=== PATIENT | male | born 1945 | race Caucasian/White ===

== ENCOUNTER → 2017-04-26 | Outpatient (CLI) | payer OTHER ==
[~2017-04-26] MED LIST: CLOP75 PO; ECOT325T PO; LIPI80TA16 PO; LISI-360 PO; METO25CR PO; NOVOLOGP2 SQ
--- NOTE | 2017-04-26 10:03 | RADRPT ---
EXAM DATE/TIME: 04/26/2017 09:50 [facility] COMPARISON: No previous studies available for comparison. INDICATIONS : Dysphagia FLUORO TIME: 1.3 minutes IMAGE COUNT: 3 CONTRAST: Dose as prescribed by speech pathologist. MEDICAL HISTORY : Carcinoma, tongue. SURGICAL HISTORY : None. ENCOUNTER: Initial ACUITY: 1 day PAIN SCORE: 0/10 LOCATION: Bilateral Esophagus FINDINGS: A modified barium swallow was performed with speech pathology. Patient was given a variety of liquids to swallow. There is penetration and aspiration of tracer activity into the upper airway. For a full detailed report, see report by the speech pathologist. CONCLUSION: There is evidence of penetration and aspiration into the upper airway. Dillon August MD on April 26, 2017 at 10:01 Board Certified Radiologist. This report was verified electronically.
== END ==
LOC: HRAD 09:20
PROVIDERS: ATTEND Specialist
DX: C01 Malignant neoplasm of base of tongue (principal); C78.02 Secondary malignant neoplasm of left lung
CPT/HCPCS: 74230; 92611; G8996; G8997; G8998

== ENCOUNTER 2017-08-15 06:11 | Day surgery (SDC) | payer OTHER ==
[~2017-08-15] VITALS: Ht 175.3 cm; Wt 70.5 kg
[2017-08-15 06:44] VITALS: BP 134/88; PULSE 89; RESP 20; TEMP 97.7; O2SAT 98
[2017-08-15] MEDS ORDERED: LANTUS2P SQ (06:47)
[2017-08-15] MEDS ORDERED: NOVOLOGP2 SQ (06:47)
[2017-08-15] MEDS ORDERED: MAGN250T11 G-TUBE (06:47)
[2017-08-15] MEDS ORDERED: LEVO25TA4 G-TUBE (06:47)
[2017-08-15] MEDS ORDERED: ATOR40TA16 G-TUBE (06:47)
[2017-08-15] MEDS ORDERED: ASPI81CH6 G-TUBE (06:47)
[2017-08-15] MEDS ORDERED: CHLORHEXIDINE GLUCONATE 2 % 1 PACK (2 CLOTHS) TOPICAL SCH (07:00)
[2017-08-15] MEDS ORDERED: VANCOMYCIN 1000 MG/NS 250 ML - implanted port/tunneled catheter IV SCH ×2 (07:00)
[2017-08-15] MEDS ORDERED: ceFAZolin 2 GM PREMIX 50 ML - implanted port/tunneled catheter insertion IV SCH (07:00)
[2017-08-15] MEDS ORDERED: SODIUM CHLORIDE 0.9% 1000 ML IV SCH (07:00)
[2017-08-15] MEDS ORDERED: POVIDONE IODINE 5% (ANTISEPSIS KIT) 4 APPLICATIONS EACH NARE SCH (07:00)
[2017-08-15] MEDS ORDERED: fentaNYL CITRATE 250 MCG/5 ML AMP ONE (08:04)
[2017-08-15] MEDS ORDERED: MIDAZOLAM HCL 2 MG/2 ML VIAL ONE (08:04)
[2017-08-15 09:30] VITALS: BP 126/73; PULSE 84; RESP 18; TEMP 97.7; O2SAT 96
[2017-08-15 09:45] VITALS: BP 123/80; PULSE 81; RESP 18; O2SAT 94
[2017-08-15] MEDS ORDERED: SODIUM CHLORIDE 0.9% FLUSH 10 ML FLUSH IVF PRN (09:45)
--- NOTE | 2017-08-15 09:49 | PD.RAD ---
Post Procedure Progress Note Pre Procedure Diagnosis: (1) Lung cancer Post Procedure Diagnosis: (1) Lung cancer Procedure Date: Aug 15, 2017 Supervising Radiologist: Marek Quinteros Proceduralist/Assist: Handy Lomax, RT(R), Ly Scott, RT(R) Anesthesia: Local, Conscious Sedation Plan of Activity Patient to Unit: ROPU Patient Condition: Good See PACS Report for procedural detail/treatment Central Venous Access Device Procedure 1 Right Internal Jugular Infusaport Placement single lumen Barb[place]: 8 Additional Detail: Right IJ occluded to within a centimeter of the innominate vein - likely secondary to prior ports and tx for H&N Ca Marek Quinteros MD Aug 15, 2017 09:49
[2017-08-15] MEDS ORDERED: HYDROmorphone HCL PF 1 MG/ML VIAL IVS PRN ×2 (10:00)
[2017-08-15] MEDS ORDERED: oxyCODONE/ACETAMINOPHEN 5 MG/325 MG TAB PO PRN ×2 (10:00)
[2017-08-15 10:15] VITALS: BP 122/68; PULSE 81; RESP 18; O2SAT 97
[2017-08-15 10:45] VITALS: BP 114/64; PULSE 75; RESP 18; O2SAT 97
--- NOTE | 2017-08-15 10:47 | RADRPT ---
EXAM DATE/TIME: 08/15/2017 09:54 [facility] COMPARISON: No previous studies available for comparison. INDICATIONS : Inzesh-q-Ibke placement MEDICAL HISTORY : Carcinoma, lung. SURGICAL HISTORY : None. ENCOUNTER: Initial ACUITY: 1 day PAIN SCORE: 0/10 LOCATION: Bilateral chest FINDINGS: Relhiq-j-Pqai in good position. No pneumothorax. Minimal parenchymal changes laterally right lung. Left lung clear. CONCLUSION: Negative for pneumothorax Peter Flores MD FACR on August 15, 2017 at 10:42 Board Certified Radiologist. This report was verified electronically.
--- NOTE | 2017-08-15 11:12 | RADRPT ---
EXAM DATE/TIME: 08/15/2017 08:58 [facility] COMPARISON: CHEST EXPIRATION ONLY, August 15, 2017, 9:54. INDICATIONS : Patient presents with lung mass in need of port placement. MEDICAL HISTORY : Tongue cancer CAD Diabetes High Cholesterol SURGICAL HISTORY : Kidney transplant G-tube ENCOUNTER: Initial ACUITY: 1 week PAIN SCORE: 0/10 LOCATION: N/A FLUORO TIME: 1.2 minutes IMAGE SERIES: SEDATION TIME: 30 minutes ACCESS: Right internal jugular vein SEDATION: 1.) 4 mg midazolam (Versed) IV 2.) 250 mcg fentanyl (Sublimaze) IV Prophylactic antibiotics were administered with appropriate pre-procedure timing. Vancomycin within 2 hours of procedure, Ancef (or alternative) within 1 hour of procedure. DEVICE: 1. 8 Australian single lumen Xcela Plus Port PROCEDURE : 1. Continuous pulse oximetry and EKG monitoring. 2. Intravenous conscious sedation. 3. Ultrasound guidance for venous access. 4. Fluoroscopic guided implantable central venous port placement. The patient was placed supine. The neck was prepped in sterile fashion. Full sterile technique was u sed, including cap, mask, sterile gloves and gown, and a large sterile sheet. Hand hygiene and 2% ch lorhexidine Betadine was utilized per protocol for cutaneous antisepsis with appropriate dry time for site. Sterile gel and sterile probe cover were utilized for ultrasound guidance. The skin and sub cutaneous tissues were infiltrated with local anesthetic solution. Under direct ultrasound guidance, central venous access was accomplished in the targeted vessel. The ultrasound images depicting access guidance were stored and saved to PACS for permanent record. A s ubcutaneous pocket was created using blunt dissection. The port was introduced to the pocket. The c atheter tubing was fed through a subcutaneous tunnel to the venotomy site. The catheter tubing was c ut to a suitable length and then was introduced through a valved Peel-Away sheath and positioned with catheter tubing tip at the cavo-atrial junction level. The pocket incision was closed with subcutic ular Vicryl suture. Steri-Strips were applied. The port was flushed and locked with heparin solutio n per protocol. Sterile dressing was applied to the site. The patient tolerated the procedure well. Conscious sedation was performed with the prescribed dosages and duration as above in the presence of an independent trained radiology nurse to assist in the monitoring of the patient. EKG and oximetry remained stable throughout the procedure. The patient tolerated the procedure well and there were no complications. The patient was sent to post anesthesia recovery in stable condition. CONCLUSION: Uncomplicated ultrasound and fluoroscopic guided implanted central venous port catheter placement as described in detail above. An 8 Australian Power port was placed. Marek Quinteros MD on August 15, 2017 at 11:09 Board Certified Radiologist. This report was verified electronically.
== END 2017-08-15 11:26 | disposition home or self-care (01) ==
LOC: HROP 06:11 → HRIP 06:15 → HROP 11:26
PROVIDERS: ATTEND Internal Medicine Hematology & Oncology
DX: C34.90 Malignant neoplasm of unspecified part of unspecified bronchus or lung (principal)
CPT/HCPCS: 36561; 71045; 76937; 77001; 99152; 99153; C1788; J0690; J1642; J2250; J3010; J3370; J7030; J7050

== ENCOUNTER 2018-09-03 22:10 | Inpatient (IN) ==
[2018-09-03] MEDS ORDERED: Pantoprazole Inj 40 MG Vial IV.PUSH ONE (22:44)
[2018-09-03] MEDS ORDERED: Sod Chloride 0.9% Inj 1,000 ML IV.SIG ONE (22:46)
[2018-09-03 23:04] LABS: Baso % (Auto) 0.3 % (0.0-2.0); Eos # (Auto) 0.1 th/mm3 (0.0-0.4); Eos % (Auto) 2.8 % (0.0-4.0); Hematocrit 37.3 % (39.0-51.0); Hemoglobin 12.5 gm/dL (13.0-17.0); Lymph # (Auto) 0.7 th/mm3 (1.0-4.8); Lymph % (Auto) 15.3 % (9.0-44.0); Mean Corpuscular HGB Conc 33.4 % (32.0-36.0); Mean Corpuscular Hemoglobin 27.7 pg (27.0-34.0); Mean Corpuscular Volume 82.9 fL (80.0-100.0); Mean Platelet Volume 9.2 fL (7.0-11.0); Mono # (Auto) 0.5 th/mm3 (0.0-0.9); Mono % (Auto) 10.9 % (0.0-8.0); Neut # (Auto) 3.4 th/mm3 (1.8-7.7); Neut % (Auto) 70.7 % (16.0-70.0); Platelet Count 233 th/mm3 (150-450); Red Cell Distribution Width 14.1 % (11.6-17.2); White Blood Count 4.8 th/mm3 (4.0-11.0)
--- NOTE | 2018-09-03 23:08 | ED ---
HPI General Chief complaint: Nausea/Vomiting/Diarrhea Stated complaint: Vomiting blood Time Seen by Provider: 09/03/18 22:31 History of Present Illness HPI Narrative: Patient is a 73-year-old male with a history of laryngeal cancer and then repeat throat cancer laser surgery is on a PEG tube takes nothing by mouth except liquid tonight after the PEG feeding was done he went to the bathroom felt he would vomit out came coffee-ground emesis and from his PEG tube there is coffee-ground emesis looking material it is guaiac positive bedside we check it patient denies any pain he denies any NSAIDs he denies any trauma he denies any injury from the area patient recently had a chemotherapy that may have affected his LFTs and caused possibly coagulopathy patient has normal vitals but has an obvious coffee-ground emesis is needing to be admitted put on a Protonix drip and to be seen by GI patient is never had ulcers in his stomach before and he is denying black stools he is denying NSAIDs he is denying any caustics he does take magnesium oxide pills always Related Data Home Medications Medication Instructions Recorded Confirmed atorvastatin 40 mg PO QPM 08/25/18 09/04/18 levothyroxine 75 mcg PO DAILY 08/25/18 09/04/18 magnesium oxide [MagOx] 400 mg PO DAILY 08/25/18 09/04/18 insulin asp prt-insulin aspart 15 unit SUBCUT BID 09/04/18 09/04/18 [Novolog Mix 70-30 U-100 Insuln] insulin glargine [Lantus U-100 20 unit SUBCUT DAILY 09/04/18 09/04/18 Insulin] Allergies Allergy/AdvReac Type Severity Reaction Status Date / Time No Known Allergies Allergy Verified 08/25/18 10:33 Review of Systems ROS: all other systems reviewed are negative Gastrointestinal Reports coffee ground emesis PMFSH Medical History Medical History Diabetes (Acute) G tube feedings (Acute) Lung metastasis (Acute) Throat cancer (Acute) Surgical History Surgical History H/O heart artery stent (Acute) Social History Social History Substance History: No History of Abuse Second Hand Smoke Exposure: No Smoking Status: Former smoker Tobacco Type: Cigarettes How Often Do You Have a Drink Containing Alcohol: Never Recent Travel in [facility] within the Last 8 Weeks: No Recent Out of Country Travel within the Last 8 Weeks: No Exam Narrative Exam Narrative: GENERAL: PT HAS COFFEE COLORED LIQUID IN HIS PEG FEEDING TUBE, NON TOXIC NON SEPTIC APPEARANCE SKIN: Warm and dry. HEAD: Atraumatic. Normocephalic. EYES: Pupils equal and round. No scleral icterus. No injection or drainage. ENT: No nasal bleeding or discharge. Mucous membranes pink and moist. NECK: Trachea midline. No JVD. CARDIOVASCULAR: Regular rate and rhythm. RESPIRATORY: No accessory muscle use. Clear to auscultation. Breath sounds equal bilaterally. GASTROINTESTINAL: Abdomen NON TENDER WITH NO BLOOD AROUND PEG TUBE , TUBE HAS MAROON COLORED COFFEE GROUND LOOKING SUBSTANCE FLUID IN TUBE = GUIAC + POSITIVE ON OCCULT CARD FOR BLOOD MUSCULOSKELETAL: Extremities without clubbing, cyanosis, or edema. No obvious deformities. NEUROLOGICAL: Awake and alert. No obvious cranial nerve deficits. Motor grossly within normal limits. Five out of 5 muscle strength in the arms and legs. Normal speech. PSYCHIATRIC: Appropriate mood and affect; insight and judgment normal. Course Initial Documented Vital Signs Temperature 98.3 F 09/03/18 22:10 Pulse Rate 97 H 09/03/18 22:10 Respiratory Rate 20 09/03/18 22:10 Blood Pressure 125/77 09/03/18 22:10 Pulse Oximetry 97 09/03/18 22:10 Last Documented Vital Signs Temperature 97.8 F 09/04/18 04:00 Pulse Rate 78 09/04/18 04:00 Respiratory Rate 16 09/04/18 04:00 Blood Pressure 130/76 09/04/18 04:00 Pulse Oximetry 97 09/04/18 04:00 Medical Decision Making MDM Narrative Medical decision making narrative: PROTONIX IV NS AND PROTONIX DRIP AND ADMITTED Medical Screen Exam Complete: Yes Emergency Medical Condition: Yes Differential Diagnosis Differential Diagnosis: BLEEDING GASTRIC ULCER VS BLEEDING PUD VS FOOD COLORING FLUID BROWN VS NOSE BLEED THAT WS POSTERIOR PHARYNX TO GASTRIC BLOOD OTHER Lab Data Result diagrams: 09/04/18 01:38 09/03/18 22:50 Lab Results 09/03/18 09/03/18 09/03/18 Range/Units 22:50 22:50 22:50 CBC w Diff Auto diff final WBC 4.8 (4.0-11.0) th/mm3 RBC 4.50 (4.50-5.90) mil/mm3 Hgb 12.5 L (13.0-17.0) gm/dL Hct 37.3 L (39.0-51.0) % MCV 82.9 (80.0-100.0) fL MCH 27.7 (27.0-34.0) pg MCHC 33.4 (32.0-36.0) % RDW 14.1 (11.6-17.2) % Plt Count 233 (150-450) th/mm3 MPV 9.2 (7.0-11.0) fL Neut % (Auto) 70.7 H (16.0-70.0) % Lymph % (Auto) 15.3 (9.0-44.0) % [place] % (Auto) 10.9 H (0.0-8.0) % Eos % (Auto) 2.8 (0.0-4.0) % Baso % (Auto) 0.3 (0.0-2.0) % Neut # (Auto) 3.4 (1.8-7.7) th/mm3 Lymph # (Auto) 0.7 L (1.0-4.8) th/mm3 [place] # (Auto) 0.5 (0.0-0.9) th/mm3 Eos # (Auto) 0.1 (0.0-0.4) th/mm3 Baso # (Auto) 0.0 (0.0-0.2) th/mm3 WBC Differential . Differential Comment . PT 10.1 (9.8-11.6) sec INR 1.0 Ratio Sodium 132 L (136-145) meq/L Potassium 3.7 (3.5-5.1) meq/L Chloride 94 L (98-107) meq/L Carbon Dioxide 30.3 (21.0-32.0) meq/L Anion Gap 8 (5-15) meq/L BUN 22 H (7-18) mg/dL Creatinine 0.87 (0.60-1.30) mg/dL Estimated GFR 87 L (>89) mL/min Random Glucose 289 H (74-106) mg/dL Calcium 8.9 (8.5-10.1) mg/dL Total Bilirubin 0.5 (0.2-1.0) mg/dL AST 100 H (15-37) U/L ALT 130 H (12-78) U/L Alkaline Phosphatase 159 H (45-117) U/L Total Protein 7.9 (6.4-8.2) g/dL Albumin 3.3 L (3.4-5.0) g/dL Blood Type Blood Type Recheck Antibody Screen 09/03/18 09/04/18 Range/Units 22:50 01:38 CBC w Diff WBC (4.0-11.0) th/mm3 RBC (4.50-5.90) mil/mm3 Hgb 10.4 L D (13.0-17.0) gm/dL Hct (39.0-51.0) % MCV (80.0-100.0) fL MCH (27.0-34.0) pg MCHC (32.0-36.0) % RDW (11.6-17.2) % Plt Count (150-450) th/mm3 MPV (7.0-11.0) fL Neut % (Auto) (16.0-70.0) % Lymph % (Auto) (9.0-44.0) % [place] % (Auto) (0.0-8.0) % Eos % (Auto) (0.0-4.0) % Baso % (Auto) (0.0-2.0) % Neut # (Auto) (1.8-7.7) th/mm3 Lymph # (Auto) (1.0-4.8) th/mm3 [place] # (Auto) (0.0-0.9) th/mm3 Eos # (Auto) (0.0-0.4) th/mm3 Baso # (Auto) (0.0-0.2) th/mm3 WBC Differential Differential Comment PT (9.8-11.6) sec INR Ratio Sodium (136-145) meq/L Potassium (3.5-5.1) meq/L Chloride (98-107) meq/L Carbon Dioxide (21.0-32.0) meq/L Anion Gap (5-15) meq/L BUN (7-18) mg/dL Creatinine (0.60-1.30) mg/dL Estimated GFR (>89) mL/min Random Glucose (74-106) mg/dL Calcium (8.5-10.1) mg/dL Total Bilirubin (0.2-1.0) mg/dL AST (15-37) U/L ALT (12-78) U/L Alkaline Phosphatase (45-117) U/L Total Protein (6.4-8.2) g/dL Albumin (3.4-5.0) g/dL Blood Type A Negative Blood Type Recheck Required Antibody Screen Negative Imaging Data Radiologist's impression: Abdomen/Pelvis CT 09/03/18 23:18 CONCLUSION: 1. Areas wall thickening with some minimal stranding within the transverse and sigmoid colon could be colitis. No perforation or abscess. 2. Pleural-based masses in the right lower hemithorax. 3. Minimal stranding in the mesentery which can be seen with mesenteric paniculitis, self-limiting. Discharge Plan Discharge Disposition Patient Disposition: ED Admit(ED Internal Use Only) Discharge Order Discharge Orders: ED Use Only Admit Order (Routine); Ordered 09/03/18 Ordered By: Ankur Coates Discharge Details Diagnosis: Acute GI bleeding Physicians Team ED Provider: Ankur Coates Primary Care Provider: Maurisio Lechuga Attending Provider: Agustin Sauer Other Providers: Renny Read Status ED Status: Left Department Discharge Information Discharge Date/Time: 09/04/18 02:30
[2018-09-03 23:15] LABS: Chloride 94 meq/L (98-107); Potassium 3.7 meq/L (3.5-5.1); Sodium 132 meq/L (136-145)
[2018-09-03 23:18] LABS: Calcium 8.9 mg/dL (8.5-10.1)
[2018-09-03 23:19] LABS: Albumin 3.3 g/dL (3.4-5.0); Anion Gap 8 meq/L (5-15); Blood Urea Nitrogen 22 mg/dL (7-18); Carbon Dioxide 30.3 meq/L (21.0-32.0); Glucose,Random 289 mg/dL (74-106); Prothrombin Time 10.1 sec (9.8-11.6)
[2018-09-03 23:22] LABS: Alanine Aminotransferase 130 U/L (12-78); Aspartate Aminotransferase 100 U/L (15-37); Glomerular Filtration Rate 87 mL/min (>89)
[2018-09-03 23:24] LABS: Total Protein 7.9 g/dL (6.4-8.2)
[2018-09-03 23:25] LABS: Alkaline Phosphatase 159 U/L (45-117)
[2018-09-03] MEDS ORDERED: Pantoprazole Inj 80 MG in Sodium Chlor 0.9% Inj 100 ML IV.CONT SCH (23:45)
[2018-09-03] MEDS ORDERED: Dextrose 50% in Water 50 ML Vial IV.PUSH PRN (23:58)
[2018-09-04] MEDS ORDERED: Acetaminophen 325 MG Tablet PO PRN (00:03)
[2018-09-04] MEDS ORDERED: Bisacodyl 10 MG Supp RECTAL PRN (00:03)
--- NOTE | 2018-09-04 00:18 | CT ---
EXAM DATE: 09/04/2018 12:02 AM EST AGE/SEX: 73 years / Male INDICATIONS: Distention. Blood in feeding tube. CLINICAL DATA: This is the patient's initial encounter. Patient reports that signs and symptoms have been present for 1 day and indicates a pain score of 0/10. MEDICAL/SURGICAL HISTORY: Carcinoma, oral cavity. Carcinoma, lung. . Gastric feeding tube. RADIATION DOSE: 16.78 CTDI (mGy) COMPARISON: POI, CT ABDOMEN AND PELVIS W/ CONTRAST, 08/02/2018. . TECHNIQUE: Multiple contiguous axial images were obtained through the abdomen. Images were obtained using multiple row detector helical technique. Using automated exposure control and adjustment of the mA and/or kV according to patient size, radiation dose was kept as low as reasonably achievable to o btain optimal diagnostic quality images. DICOM format image data is available electronically for rev iew and comparison. FINDINGS: Lower Lungs: 3 pleural-based masses in the right lower hemithorax. Pleural calcifications bilaterally . Liver: The liver has a homogeneous density without space-occupying lesion. There is no dilation of th e biliary tree. Spleen: Homogeneous density without enlargement. Pancreas: Atrophic with chronic pancreatic calcifications. Kidneys: Normal in size and shape. No evidence of mass or hydronephrosis. Adrenal Glands: Unremarkable. Aorta: The aorta and proximal iliac vessels are grossly unremarkable without aneurysmal dilation. Bowel/Mesentery: Percutaneous gastrostomy tube. There is some minimal stranding in the mesentery. Th ere is some wall thickening and inflammatory changes within the transverse and sigmoid colon. Abdominal Wall: Intact. Retroperitoneum: No evidence of adenopathy in the retrocrural, para-aortic, or deep pelvic regions. Bladder: Contours are smooth. Reproductive Organs: No abnormal masses or calcifications seen. Inguinal: The inguinal region is unremarkable without evidence of adenopathy. Bony Structures: Degenerative changes lumbar spine greatest at L4 and L5 levels. CONCLUSION: 1. Areas wall thickening with some minimal stranding within the transverse and sigmoid colon could b e colitis. No perforation or abscess. 2. Pleural-based masses in the right lower hemithorax. 3. Minimal stranding in the mesentery which can be seen with mesenteric paniculitis, self-limiting. Electronically signed by: Agustin Chavez MD Board Certified Radiologist 09/04/2018 12:17 AM EST
[2018-09-04] MEDS: Sod Chloride 0.9% Inj 1,000 ML IV.CONT SCH ×2 (01:42→12:00)
[2018-09-04] MEDS: Pantoprazole Inj 80 MG in Sodium Chlor 0.9% Inj 100 ML IV.CONT SCH ×3 (01:43→20:09)
[2018-09-04] MEDS: Insulin NovoLOG Aspart Correctional Sugar Inj SQ SCH ×4 (07:22→20:15)
[2018-09-04] MEDS ORDERED: Influenza (Quadrivalent) Vaccine 0.5 ML Syringe IM ONE (09:00)
[2018-09-04] MEDS: Dextrose 5% in Water Inj 1,000 ML IV.CONT SCH (12:56)
--- NOTE | 2018-09-04 13:26 | P.CONIM ---
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 Although patient denies any GI bleed per rectum however he has finding of colitis per abdomen CT. Patient states, he has had a PEG tube placed 2 years ago and denies any prior GI bleed per his tube. He states, yesterday detention through feeding around 9 PM he noted blood through his PEG tube which was followed by coffee-ground emesis. He Is currently on chemo, which he received 2 weeks ago. Patient reports a prior history of tobacco abuse. H&H on admission was 12.5/37.3. Review of Systems Review of Systems: all other systems reviewed are negative [facility] Medical History Medical History Diabetes (Acute) G tube feedings (Acute) Lung metastasis (Acute) Throat cancer (Acute) Surgical History Surgical History H/O heart artery stent (Acute) Social History Social History Substance History: No History of Abuse Second Hand Smoke Exposure: No Smoking Status: Former smoker Tobacco Type: Cigarettes How Often Do You Have a Drink Containing Alcohol: Never Recent Travel in [place] within the Last 8 Weeks: No Recent Out of Country Travel within the Last 8 Weeks: No Immunization History Tetanus Immunization: >5 Years Hx Influenza Vaccine This Season: No Medications and Allergies Allergies Allergy/AdvReac Type Severity Reaction Status Date / Time No Known Allergies Allergy Verified 08/25/18 10:33 Home Medications Medication Instructions Recorded Confirmed Type atorvastatin 40 mg PO QPM 08/25/18 09/04/18 History levothyroxine 75 mcg PO DAILY 08/25/18 09/04/18 History magnesium oxide [MagOx] 400 mg PO DAILY 08/25/18 09/04/18 History insulin asp prt-insulin aspart 15 unit SUBCUT BID 09/04/18 09/04/18 History [Novolog Mix 70-30 U-100 Insuln] insulin glargine [Lantus U-100 20 unit SUBCUT DAILY 09/04/18 09/04/18 History Insulin] Active Medications: Active Medications Acetaminophen (Tylenol) 650 mg PO Q4H PRN PRN Reason: Temp > 100.4 Al Hydroxide/Mg Hydroxide (Milk Of Magnesia Liq) 30 ml PO Q12H PRN PRN Reason: Mild Constipation Bisacodyl (Dulcolax Supp) 10 mg RECTAL DAILY PRN PRN Reason: SEVERE CONSITIPATION Dextrose (D50w Vial) 50 ml IV.PUSH UNSCH PRN PRN Reason: PER HYPOGLYCEMIA PROTOCOL Glucagon (Glucagon Inj) 1 mg OTHER PRN PRN PRN Reason: for Hypoglycemia Protocol Pantoprazole Sodium 80 mg/ (Sodium Chloride) 100 mls @ 10 mls/hr IV.CONT Q10H [facility] Last Admin: 09/04/18 11:59 Dose: 10 mls/hr Dextrose (D5w Inj) 1,000 mls @ 84 mls/hr IV.CONT .[id number] [facility] Last Admin: 09/04/18 12:56 Dose: 84 mls/hr Insulin Aspart (Novolog Insulin Correctional Sugar Inj) 0 unit SQ ACHS [facility]; Protocol Last Admin: 09/04/18 12:01 Dose: Not Given Lactulose (Lactulose Liq) 30 ml PO DAILY PRN PRN Reason: SEVERE CONSITIPATION Ondansetron HCl (Zofran Inj) 4 mg IV.PUSH Q6H PRN PRN Reason: NAUSEA OR VOMITING Polyethylene Glycol/Electrolytes (Colyte Liq) 4,000 ml G-TUBE ONCE ONE Stop: 09/04/18 14:01 Sennosides (Senokot) 17.2 mg PO Q12H PRN PRN Reason: Moderate Constipation Sodium Chloride (Ns Flush) 2 ml IV.FLUSH BID [facility] Last Admin: 09/04/18 08:11 Dose: Not Given Sodium Chloride (Ns Flush) 2 ml IV.FLUSH PRN PRN PRN Reason: FLUSH AFTER USING IV ACCESS Physical Exam Vital signs: Vital Signs 09/03/18 22:10 09/03/18 23:58 09/04/18 01:00 Temperature 98.3 F Pulse Rate 97 H 74 78 Respiratory Rate 20 18 20 Blood Pressure 125/77 110/62 129/69 Pulse Oximetry 97 09/04/18 02:00 09/04/18 04:00 09/04/18 08:00 Temperature 97.8 F 98.2 F Pulse Rate 78 78 74 Respiratory Rate 18 16 20 Blood Pressure 129/69 130/76 113/61 Pulse Oximetry 97 95 09/04/18 12:00 Temperature 97.0 F L Pulse Rate 72 Respiratory Rate 22 Blood Pressure 109/56 L Pulse Oximetry 96 Intake & Output 09/03/18 09/04/18 09/04/18 18:59 06:59 18:59 Intake Total 1200 / 1200 Output Total 500 / 500 Balance -500 / -500 1200 / 1200 Weight 81.3 kg Intake: IV 1200 / 1200 Protonix Inj 80 MG In NS Inj 100 / 100 100 ML @ 10 mls/hr IV.CONT Q10H [facility] Rx#:[id number] NS Inj 1,000 ML @ 100 mls/hr IV 1100 / 1100 .CONT .Q10H [facility] Rx#:[id number] Output: Urine 500 / 500 Other: Date of Last Bowel Movement 09/04/18 Weight On Admission 81 kg Narrative: GENERAL: NAD SKIN: Warm and dry. HEAD: Atraumatic. Normocephalic. EYES: Pupils equal and round. No scleral icterus. No injection or drainage. ENT: No nasal bleeding or discharge. Mucous membranes pink and moist. NECK: Trachea midline. No JVD. CARDIOVASCULAR: Regular rate and rhythm. RESPIRATORY: No accessory muscle use. Clear to auscultation. Breath sounds equal bilaterally. GASTROINTESTINAL: Abdomen soft, non-tender, nondistended. Hepatic and splenic margins not palpable. PEG tube in place MUSCULOSKELETAL: Extremities without clubbing, cyanosis, or edema. No obvious deformities. NEUROLOGICAL: Awake and alert. No obvious cranial nerve deficits. Motor grossly within normal limits. Five out of 5 muscle strength in the arms and legs. Normal speech. PSYCHIATRIC: Appropriate mood and affect; insight and judgment normal. Results Labs CBC & Chem 7: 09/04/18 07:33 09/03/18 22:50 Imaging Impressions Abdomen/Pelvis CT 09/03/18 23:18 CONCLUSION: 1. Areas wall thickening with some minimal stranding within the transverse and sigmoid colon could be colitis. No perforation or abscess. 2. Pleural-based masses in the right lower hemithorax. 3. Minimal stranding in the mesentery which can be seen with mesenteric paniculitis, self-limiting. ABG Impressions Abdomen/Pelvis CT 09/03/18 23:18 CONCLUSION: 1. Areas wall thickening with some minimal stranding within the transverse and sigmoid colon could be colitis. No perforation or abscess. 2. Pleural-based masses in the right lower hemithorax. 3. Minimal stranding in the mesentery which can be seen with mesenteric paniculitis, self-limiting. Assessment and Plan Plan 73-year-old man with Coffee-ground emesis Bleeding through PEG tube CT abdomen noted and reviewed by me with finding of possible colitis, however will hold on starting antibiotics patient has no WBC denies any abdominal pain nor is he febrile. Currently on PPI drip Gastroenterology has been consulted for evaluation for panendoscopy and PEG tube replacement Continue serial H&H monitoring Anemia of chronic disease Continue to monitor H&H and transfuse accordingly for hemoglobin less than 8 Diabetes type 2 Hold all oral hyperglycemic agents Start insulin sliding scale with fingerstick blood glucose monitoring Hyperlipidemia, hypothyroidism Hold oral medications as patient currently n.p.o. and PEG tube cannot be used DVT prophylaxis: Mechanical prophylaxis contraindicated GI prophylaxis: PPI
[2018-09-04] MEDS ORDERED: PEG 3350/E-Lyte Soln 4000 ML Bottle G-TUBE ONE (14:00)
--- NOTE | 2018-09-04 14:22 | MB ---
cc: Renny Read MD, Eric MD DATE: 09/04/2018 REASON FOR CONSULTATION: Nausea, vomiting, hematemesis, and anemia. The patient also has elevated liver function tests. HISTORY OF PRESENT ILLNESS: This patient is a 73-year-old gentleman who has metastatic laryngeal cancer. He is currently undergoing chemotherapy for metastasis to the lungs. He presented with coffee-ground emesis and blood through the G-tube. He denies any lower GI symptoms, although his CT scan shows some evidence of nonspecific colitis. He says after chemotherapy his liver function tests went up in the high 200s, which now seem to be improving. REVIEW OF SYSTEMS: Currently having no nausea, vomiting. No bleeding. PAST MEDICAL HISTORY: Diabetes, laryngeal cancer with metastasis to the lung. Feeding tube placement. PAST SURGICAL HISTORY: Coronary stent placement, laryngeal surgery. SOCIAL HISTORY: The patient is a former smoker. No alcohol reported. MEDICINES ON ADMISSION: 1. Atorvastatin. 2. Levothyroxine. 3. Insulin. PHYSICAL EXAMINATION: GENERAL: Reveals a well-nourished man in no apparent distress. VITAL SIGNS: Stable. HEAD AND NECK: Anicteric sclerae. LUNGS: Bilateral air entry with rales. ABDOMEN: Soft. G-tube in place. CENTRAL NERVOUS SYSTEM: Nonfocal. RECTAL: Deferred at this time. LABORATORY DATA: Reveal hemoglobin of 10.6, INR is 1. Creatinine 0.87, AST of 100, ALT 130, alkaline phosphatase 159. CT of the abdomen and pelvis shows some nonspecific colitis, otherwise unremarkable. PLAN: EGD, colonoscopy discussed with the patient. He states he was previously scheduled for a PEG tube replacement through [facility]. He is okay with me to go ahead and proceed with an EGD, colonoscopy, and feeding tube replacement for tomorrow. This has been discussed with Dr. Sauer. GoLYTELY prep will be given through the G-tube. Further recommendations to follow. Thank you for this referral. MD MARY ELLEN Machado/sherri , 01:05 PM , 01:12 PM
[2018-09-04] MEDS: Melatonin 5 MG Tablet PO PRN (23:10)
[2018-09-05] MEDS: Dextrose 5% in Water Inj 1,000 ML IV.CONT SCH (01:04)
[2018-09-05] MEDS ORDERED: Levothyroxine 75 MCG Tablet PO SCH (06:00)
[2018-09-05 06:12] LABS: Baso % (Auto) 0.2 % (0.0-2.0); Eos # (Auto) 0.1 th/mm3 (0.0-0.4); Eos % (Auto) 3.7 % (0.0-4.0); Hematocrit 29.8 % (39.0-51.0); Hemoglobin 9.9 gm/dL (13.0-17.0); Lymph # (Auto) 0.6 th/mm3 (1.0-4.8); Lymph % (Auto) 18.9 % (9.0-44.0); Mean Corpuscular HGB Conc 33.3 % (32.0-36.0); Mean Corpuscular Hemoglobin 27.8 pg (27.0-34.0); Mean Corpuscular Volume 83.7 fL (80.0-100.0); Mean Platelet Volume 8.9 fL (7.0-11.0); Mono # (Auto) 0.3 th/mm3 (0.0-0.9); Neut % (Auto) 66.2 % (16.0-70.0); Platelet Count 185 th/mm3 (150-450); Red Blood Count 3.56 mil/mm3 (4.50-5.90); Red Cell Distribution Width 14.4 % (11.6-17.2)
[2018-09-05] MEDS: Pantoprazole Inj 80 MG in Sodium Chlor 0.9% Inj 100 ML IV.CONT SCH ×2 (06:20→18:27)
[2018-09-05 06:59] LABS: Alanine Aminotransferase 99 U/L (12-78); Alkaline Phosphatase 121 U/L (45-117); Anion Gap 7 meq/L (5-15); Aspartate Aminotransferase 67 U/L (15-37); Chloride 101 meq/L (98-107); Glomerular Filtration Rate Greater Than 89 mL/min (>89); Glucose,Random 94 mg/dL (74-106); Sodium 139 meq/L (136-145); Total Protein 5.9 g/dL (6.4-8.2)
[2018-09-05 07:02] LABS: Albumin 2.5 g/dL (3.4-5.0); Blood Urea Nitrogen 10 mg/dL (7-18); Calcium 8.2 mg/dL (8.5-10.1); Potassium 2.7 meq/L (3.5-5.1)
[2018-09-05] MEDS ORDERED: Potassium Chloride 25 MEQ Effervescent Tablet PO ONE (07:20)
[2018-09-05] MEDS: Potassium Chlor 20 mEq Premix 20 MEQ/100 ML PIGGYBACK IV.SIG SCH ×2 (07:41→18:26)
[2018-09-05] MEDS: Insulin NovoLOG Aspart Correctional Sugar Inj SQ SCH ×4 (07:58→21:44)
[2018-09-05] MEDS ORDERED: Chlorhexidine Gluconate 2% 1 Pack (2 Cloths) TOPICAL ONE (14:34)
[2018-09-05] MEDS ORDERED: Sodium Chlor 0.9% Inj 500 ML IV.SIG SCH (15:00)
[2018-09-05] MEDS ORDERED: Lidocaine PF 1% Inj 5 ML Syringe INFILTRATN ONE (16:40)
--- NOTE | 2018-09-05 17:00 | GIPROC ---
[facility] [address] [place] [address], [id number] EGD PROCEDURE REPORT EXAM DATE: 09/05/2018 PATIENT NAME: Ivan Bailey MR #: [id number] BIRTHDATE: 1945 ATTENDING: Renny Read MD ORDER #: [id number] THERAPIST: Adelita Brown PSYCH THERAPIST STATUS: inpatient INDICATIONS: The patient is a 73 yr old male here for an EGD due to acute post hemorrhagic anemia, dysphagia, and PEG tube exchange PROCEDURE PERFORMED: EGD w/ biopsy Panendoscopy with PEG MEDICATIONS: None and Per Anesthesia. TOPICAL ANESTHETIC: CONSENT: The patient understands the risks and benefits of the procedure and understands that these risks include, but are not limited to: sedation, allergic reaction, infection, perforation and/or bleeding. Alternative means of evaluation and treatment include, among others: physical exam, x-rays, and/or surgical intervention. The patient elects to proceed with this endoscopic procedure. medical equipment was checked for proper function. Hand hygiene and appropriate measures for infection prevention was taken. After the risks, benefits and alternatives of the procedure were thoroughly explained, Informed consent was verified, confirmed and timeout was successfully executed by the treatment team. The patient was anesthetized with topical anesthesia and the M-DAQax [id number] endoscope was introduced through the mouth and advanced to the second portion of the duodenum. Retroflexed views revealed no abnormalities The gastroscope was then slowly withdrawn and removed. ESOPHAGUS: There was LA Class D esophagitis noted. A biopsy was performed using cold forceps. Sample sent for histology. STOMACH: Previous peg removed by traction. 20 Fr replacement tube placed. Balloon inflated with 10cc of water. DUODENUM: The duodenal mucosa appeared normal in the bulb and second portion of the duodenum. ADVERSE EVENTS: There were no complications. IMPRESSIONS: 1. There was LA Class D esophagitis noted; biopsy was performed 2. Previous peg removed by traction. 20 Fr replacement tube placed. Balloon inflated with 10cc of water 3. Normal duodenal mucosa in the bulb and second portion of the duodenum 4. Retroflexed views revealed no abnormalities RECOMMENDATIONS: 1. Await biopsy results. Biopsy results will not be ready for 7-10 days. If you don't hear from us in two weeks, call our office for biopsy results. 2. Anti-reflux regimen 3. Continue PPI PATIENT CONDITION: stable DISPOSITION: Inpatient REPEAT EXAM: Return 3 months EGD pending biopsy results Renny Read MD eSigned: Renny Read MD 09/05/2018 4:59 PM cc: PATIENT NAME: Ivan Bailey MR#: [id number]
--- NOTE | 2018-09-05 17:14 | GIPROC ---
[address], [address] COLONOSCOPY PROCEDURE REPORT EXAM DATE: 09/05/2018 PATIENT NAME: Ivan Bailey MR #: [id number] BIRTHDATE: 1945 ENDOSCOPIST: Renny Read MD ORDER #: [id number] PACK MULE WORKER: Kevin CANCHOLA and Maria L Moeller STATUS: inpatient INDICATIONS: The patient is a 73 yr old male here for a colonoscopy due to iron deficiency anemia and follow up of colonic polyps PROCEDURE PERFORMED: Colonoscopy with biopsy MEDICATIONS: None and Per Anesthesia. PREP QUALITY: The [place] Bowel Prep Score was Right colon 2, Mid colon 2, and Left colon 3. Total = 7. ESTIMATED BLOOD LOSS: None CONSENT: The patient understands the risks and benefits of the procedure and understands that these risks include, but are not limited to: sedation, allergic reaction, infection, perforation and/or bleeding. Alternative means of evaluation and treatment include, among others: physical exam, x-rays, and/or surgical intervention. The patient elects to proceed with this endoscopic procedure. medical equipment was checked for proper function. Hand hygiene and appropriate measures for infection prevention was taken. After the risks, benefits and alternatives of the procedure were thoroughly explained, Informed consent was verified, confirmed and timeout was successfully executed by the treatment team. A digital exam revealed external hemorrhoids The Pentax [id number] endoscope was introduced through the anus and advanced to the cecum, which was identified by both the appendix and ileocecal valve. The instrument was then slowly withdrawn as the colon was fully examined. COLON FINDINGS: Three polypoid shaped sessile polyps ranging between 3-7mm in size were found in the sigmoid colon. Multiple biopsies were performed using cold forceps. Retroflexed views revealed internal hemorrhoids and Retroflexed views revealed medium internal hemorrhoids The scope was then completely withdrawn from the patient and the procedure terminated. PROCEDURE WITHDRAWAL TIME:7minutes ADVERSE EVENTS: There were no complications. IMPRESSIONS: 1. Three sessile polyps ranging between 3-7mm in size were found in the sigmoid colon; multiple biopsies were performed using cold forceps 2. Retroflexed views revealed internal hemorrhoids 3. Retroflexed views revealed medium internal hemorrhoids 4. Revealed external hemorrhoids RECOMMENDATIONS: 1. Await biopsy results. Biopsy results will not be ready for 7-10 days. If you don't hear from us in two weeks, call our office for results. 2. Continue surveillance 3. Yearly hemoccult RECALL: Return 1 year Colonoscopy, pending biopsy results Renny Read MD eSigned: Renny Read MD 09/05/2018 5:13 PM cc: PATIENT NAME: Ivan Bailey MR#: [id number]
--- NOTE | 2018-09-05 19:31 | P.PNIM ---
Subjective Interval history: 73-year-old male who is seen examined today for follow-up on coffee-ground emesis and bleeding at PEG tube site. Patient did undergo endoscopy today with replacement of PEG tube. Patient is doing quite well. Denies any recurrent coffee-ground emesis. Patient has been resumed on his tube feeding. Patient is very eager to go home. Vital signs are stable. Patient remains afebrile. Physical Exam Vital signs: Vital Signs 09/04/18 20:00 09/05/18 00:00 09/05/18 08:00 Temperature 98.3 F 97.3 F L 97.0 F L Pulse Rate 75 72 68 Respiratory Rate 18 18 24 Blood Pressure 135/78 122/62 116/66 Pulse Oximetry 95 95 96 09/05/18 12:00 09/05/18 17:20 09/05/18 17:35 Temperature 96.9 F L 98.0 F 98.0 F Pulse Rate 67 68 65 Respiratory Rate 20 15 16 Blood Pressure 121/68 126/77 135/72 Pulse Oximetry 95 94 L 94 L Intake & Output 09/05/18 09/05/18 09/06/18 06:59 18:59 06:59 Intake Total 1400 / 1400 1835 / 1835 Output Total 650 / 650 Balance 750 / 750 1835 / 1835 Weight 81.3 kg Intake: IV 1200 / 1200 1335 / 1335 D5W Inj 1,000 ML @ 84 mls/hr IV 1000 / 1000 500 / 500 .CONT .[id number] [facility] Rx#: [id number] NS + KCl 20 mEq Inj 1,000 ML @ 700 / 700 100 mls/hr IV.CONT .Q10H [facility] Rx #:[id number] Protonix Inj 80 MG In NS Inj 200 / 200 85 / 85 100 ML @ 10 mls/hr IV.CONT Q10H [facility] Rx#:[id number] KCl 20 mEq Premix Inj 20 meq In 50 / 50 100 ml @ 50 mls/hr IV.SIG Q2H [facility] Rx#:[id number] Oral Supplement 200 / 200 Anesthesia Amount 500 / 500 Output: Urine 650 / 650 Other: Date of Last Bowel Movement 09/04/18 Narrative: GENERAL: Well-developed, well-nourished, in no acute distress. alert and orientated HEENT: Head is normocephalic without any lesions or masses noted. Facial features are symmetric. Eyes: Extraocular muscles are intact. Conjunctivae were clear. NECK: Supple without any masses. Trachea midline no deviation. No JVD, CARDIAC: Regular rhythm, regular rate. S1/S2 are heard. No murmurs gallops or rubs. LUNGS: Clear to auscultation bilaterally. No wheeze, rhonchi or rales. No use of accessory muscles on inspiration or expiration. ABDOMEN: Soft, nontender. Nondistended. Bowel sounds heard in all 4 quadrants. No organomegaly or masses. Negative rebound, negative guarding. PEG tube noted no signs of infection EXTREMITIES: No edema, pulses are equal bilaterally. No cyanosis or clubbing NEUROLOGY: Mood and affect appear appropriate. Cranial nerves II through XII grossly intact. Moving all extremities, speech is clear Results Labs CBC & Chem 7: 09/06/18 06:00 09/06/18 06:00 Assessment and Plan Plan GI bleeding with coffee-ground emesis and bleeding around PEG tube CT scan indicating possible colitis Patient was started on Protonix IV, will discontinue and start Prevacid Solutab per PEG tube daily Gastroenterology was consulted for panendoscopy and PEG tube replacement Patient did undergo endoscopy and did show some gastritis. PEG tube was replaced PEG tube feeding has been resumed Anemia of chronic disease Hemoglobin has remained stable Diabetes Hold oral hypoglycemic agents Accu-Cheks with sliding scale insulin Hyperlipidemia, hypothyroidism Resume home medications DVT prevention Sequential compression devices Discussed Condition With: Patient, family at bedside, nursing staff. Discharge Planning: Anticipate discharge home tomorrow if tolerates tube feed and no further signs of GI bleeding. Addendum: IRamírez, have reviewed the chart and agree with the overall assessment and plan. Regarding hypokalemia, will replace this and recheck it in a.m. Progress Note: Quality VTE Deep Vein Thrombosis/Pulmonary Embolism Present on Admission: No
[2018-09-05] MEDS: Melatonin 5 MG Tablet PO PRN (21:49)
[2018-09-06 07:19] LABS: Baso % (Auto) 0.2 % (0.0-2.0); Eos # (Auto) 0.1 th/mm3 (0.0-0.4); Eos % (Auto) 1.9 % (0.0-4.0); Hematocrit 28.7 % (39.0-51.0); Hemoglobin 9.4 gm/dL (13.0-17.0); Lymph # (Auto) 0.4 th/mm3 (1.0-4.8); Lymph % (Auto) 12.4 % (9.0-44.0); Mean Corpuscular HGB Conc 32.5 % (32.0-36.0); Mean Corpuscular Hemoglobin 27.3 pg (27.0-34.0); Mean Corpuscular Volume 83.7 fL (80.0-100.0); Mean Platelet Volume 8.6 fL (7.0-11.0); Mono # (Auto) 0.3 th/mm3 (0.0-0.9); Mono % (Auto) 9.5 % (0.0-8.0); Neut # (Auto) 2.5 th/mm3 (1.8-7.7); Platelet Count 184 th/mm3 (150-450); Red Blood Count 3.43 mil/mm3 (4.50-5.90); Red Cell Distribution Width 13.9 % (11.6-17.2); White Blood Count 3.4 th/mm3 (4.0-11.0)
[2018-09-06 07:43] LABS: Calcium 8.3 mg/dL (8.5-10.1); Carbon Dioxide 28.2 meq/L (21.0-32.0); Potassium 3.8 meq/L (3.5-5.1)
[2018-09-06 08:03] VITALS: BP 120/59; PULSE 79; RESP 18; TEMP 100.1; O2SAT 94
[2018-09-06] MEDS: Insulin NovoLOG Aspart Correctional Sugar Inj SQ SCH (08:20)
--- NOTE | 2018-09-06 09:58 | P.DS ---
DS: Providers Date of admission: 09/04/18 19:01 Primary care physician: Maurisio Lechuga MD Consults: 09/03/18 23:59 Consult to Gastroenterology Routine Consulting Provider: Renny Read Reason for Consultation: UGIB. 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 Although patient denies any GI bleed per rectum however he has finding of colitis per abdomen CT. Patient states, he has had a PEG tube placed 2 years ago and denies any prior GI bleed per his tube. He states, yesterday intermediate through feeding around 9 PM he noted blood through his PEG tube which was followed by coffee-ground emesis. He Is currently on chemo, which he received 2 weeks ago. Patient reports a prior history of tobacco abuse. H&H on admission was 12.5/37.3. DS: Diagnosis Discharge Diagnosis (1) Acute GI bleeding: Status: Acute (2) Coffee ground emesis: Status: Acute DS: Summary 73-year-old male who originally presented to hospital for evaluation of coffee-ground emesis and bleeding around the PEG tube. Patient does have a history of laryngeal cancer and metastasis to the lung currently on chemotherapy who does have a feeding tube in place. States that PEG tube was placed 2 years ago and patient did have an episode of coffee-ground emesis with bleeding around the PEG tube. Patient came to the emergency department for evaluation. Patient had workup done and patient had mild worsening of his anemia. Patient was admitted to hospital GI consultation was requested. Patient was taken for endoscopy and found gastritis. PEG tube was replaced at that time. Patient was started on tube feeding without any recurrence of coffee -ground emesis and/or bleeding around the PEG tube. Patient is feeling great at this time. Very eager to go home. Patient is clinically stable at this time. We will plan discharge accordingly. Time Spent with Patient Total time spent providing and/or coordinating discharge services: Greater than 30 minutes Quality: VTE Deep Vein Thrombosis/Pulmonary Embolism Present on Admission: No Exam Narrative Exam Narrative: GENERAL: Well-developed, well-nourished, in no acute distress. alert and orientated HEENT: Head is normocephalic without any lesions or masses noted. Facial features are symmetric. Eyes: Extraocular muscles are intact. Conjunctivae were clear. NECK: Supple without any masses. Trachea midline no deviation. No JVD, CARDIAC: Regular rhythm, regular rate. S1/S2 are heard. No murmurs gallops or rubs. LUNGS: Clear to auscultation bilaterally. No wheeze, rhonchi or rales. No use of accessory muscles on inspiration or expiration. ABDOMEN: Soft, nontender. Nondistended. Bowel sounds heard in all 4 quadrants. No organomegaly or masses. Negative rebound, negative guarding. PEG tube noted no signs of infection or bleeding EXTREMITIES: No edema, pulses are equal bilaterally. No cyanosis or clubbing NEUROLOGY: Mood and affect appear appropriate. Cranial nerves II through XII grossly intact. Moving all extremities, speech is clear Results Pending studies at discharge: Pending at discharge 09/05/18 07:48 Surgical [PTH] Routine Labs on day of discharge: Labs from last 24 hours 09/06/18 09/06/18 09/06/18 07:15 06:00 06:00 CBC w Diff Auto diff final WBC 3.4 L RBC 3.43 L Hgb 9.4 L Hct 28.7 L MCV 83.7 MCH 27.3 MCHC 32.5 RDW 13.9 Plt Count 184 MPV 8.6 Neut % (Auto) 76.0 H Lymph % (Auto) 12.4 Yancey % (Auto) 9.5 H Eos % (Auto) 1.9 Baso % (Auto) 0.2 Neut # (Auto) 2.5 Lymph # (Auto) 0.4 L Yancey # (Auto) 0.3 Eos # (Auto) 0.1 Baso # (Auto) 0.0 WBC Differential . Differential Comment . Sodium 140 Potassium 3.8 D Chloride 103 Carbon Dioxide 28.2 Anion Gap 9 BUN 12 Creatinine 0.92 Estimated GFR 81 L POC Glucose 298 Random Glucose 300 H D Calcium 8.3 L 09/05/18 09/05/18 09/05/18 21:05 18:13 11:27 CBC w Diff WBC RBC Hgb Hct MCV MCH MCHC RDW Plt Count MPV Neut % (Auto) Lymph % (Auto) Yancey % (Auto) Eos % (Auto) Baso % (Auto) Neut # (Auto) Lymph # (Auto) Yancey # (Auto) Eos # (Auto) Baso # (Auto) WBC Differential Differential Comment Sodium Potassium Chloride Carbon Dioxide Anion Gap BUN Creatinine Estimated GFR POC Glucose 146 99 102 Random Glucose Calcium Impressions ITS Impressions Abdomen/Pelvis CT 09/03/18 23:18 CONCLUSION: 1. Areas wall thickening with some minimal stranding within the transverse and sigmoid colon could be colitis. No perforation or abscess. 2. Pleural-based masses in the right lower hemithorax. 3. Minimal stranding in the mesentery which can be seen with mesenteric paniculitis, self-limiting. Discharge Plan Discharge Disposition Patient Disposition: Discharge Home Discharge Condition Condition: Stable Discharge Order Discharge Orders: Discharge Order (Routine); Ordered 09/06/18 Ordered By: Miguel A Kearney Discharge Details Anticipated Discharge Date: 09/06/18 Physicians Team Primary Care Provider: Maurisio Lechuga Attending Provider: Ramírez Luna Other Providers: Renny Read ; Vanesa Alexis Rxs /Orders / Referrals /Forms Prescriptions: Continue atorvastatin 40 mg Tablet 40 mg PO QPM RF: 0 magnesium oxide [MagOx] 400 mg (241.3 mg magnesium) Tablet 400 mg PO DAILY RF: 0 levothyroxine 75 mcg Capsule 75 mcg PO DAILY RF: 0 insulin glargine [Lantus U-100 Insulin] 100 unit/mL Solution 20 unit SUBCUT DAILY RF: 0 insulin asp prt-insulin aspart [Novolog Mix 70-30 U-100 Insuln] 100 unit/mL ( 70-30) Solution 15 unit SUBCUT BID RF: 0 Referrals: Maurisio Lechuga MD [Primary Care Provider] - See Instructions ( Your appointment has been scheduled for [09/11/18] at [11:15AM] If you cannot make this appointment, please call the office to reschedule ) Discharge Instructions Patient Printed Instructions: Gastrointestinal Bleeding (DC), Colonoscopy (DC) Status ED Status: Left Department Discharge Information Discharge Date/Time: 09/06/18 10:41
== END 2018-09-06 10:41 | disposition home or self-care (01) | DRG 394 ==
LOC: PHEDA 22:10 → PHED 22:10 → PH3 09-04 02:17
PROVIDERS: ADMIT Hospitalist; ATTEND Hospitalist
PROC: COLONOS (2018-09-05 16:40)
PROC: PANENDO (2018-09-05 16:40)
DX: C78.00 Secondary malignant neoplasm of unspecified lung; E78.5 Hyperlipidemia, unspecified; K94.21 Gastrostomy hemorrhage; Z87.891 Personal history of nicotine dependence; Z95.5 Presence of coronary angioplasty implant and graft; Z85.21 Personal history of malignant neoplasm of larynx; E11.9 Type 2 diabetes mellitus without complications; K52.9 Noninfective gastroenteritis and colitis, unspecified; E03.9 Hypothyroidism, unspecified; K64.8 Other hemorrhoids; Z92.21 Personal history of antineoplastic chemotherapy; R79.89 Other specified abnormal findings of blood chemistry; D12.5 Benign neoplasm of sigmoid colon; Z23 Encounter for immunization; Z79.4 Long term (current) use of insulin; E87.6 Hypokalemia; Z93.1 Gastrostomy status; K21.0 Gastro-esophageal reflux disease with esophagitis; Z85.819 Personal history of malignant neoplasm of unspecified site of lip, oral cavity, and pharynx; D63.8 Anemia in other chronic diseases classified elsewhere
CPT/HCPCS: 74176; 80048; 80053; 82948; 82962; 85018; 85025; 85610; 86850; 86900; 86901; 88305; 90471; 90658; 90686; 90774; 96374; 99285; C8952; C9113; G0008; J1815; J2060; J2704; J3480; J7030; J7070; J7120; Q2038